=== PATIENT | male | born 1990 | race African-American/Black ===

== ENCOUNTER 2016-11-13 09:54 | Emergency (ER) | payer MEDICAID, OTHER ==
[~2016-11-13] VITALS: Ht 177.8 cm; Wt 113.4 kg
[2016-11-13 10:05] VITALS: BP 132/96
== END 2016-11-13 11:23 | disposition home or self-care (01) ==
LOC: ER 09:54
DX: R51 Headache (principal); E11.9 Type 2 diabetes mellitus without complications; I10 Essential (primary) hypertension; H53.8 Other visual disturbances
CPT/HCPCS: 70450